=== PATIENT | female | born 1990 | race Caucasian/White ===

== ENCOUNTER 2018-04-01 16:07 | Emergency (ER) | payer OTHER ==
[2018-04-01] MEDS ORDERED: NORMAL SALINE 1000 ML 1,000 ML IV ONE (17:27)
[2018-04-01] MEDS ORDERED: METOCLOPRAMIDE HCL INJ/PF 10 MG/2 ML SDV IV ONE (17:28)
[2018-04-01] MEDS ORDERED: KETOROLAC TROMETHAMINE INJ/PF 30 MG/1 ML SDV IV ONE (17:29)
--- NOTE | 2018-04-01 17:43 | ER Document Report ---
ED Medical Screen (RME) - General Chief Complaint: migranes Stated Complaint: FEVER, MIGRAINE, FLU SYMPTOMS Time Seen by Provider: 04/01/18 17:13 Notes: Patient is a 27-year-old female, type 1 diabetes that presents to the emergency department for chief complaint of fever, neck stiffness, headache. ROS: Other than noted above, the 12 point review of systems was reviewed with the patient and were negative, all pertinent findings are included in the HPI. PHYSICAL EXAMINATION: Vital signs reviewed. GENERAL: Patient appears uncomfortable HEAD: Atraumatic, normocephalic. EYES: Pupils equal round extraocular movements intact, conjunctiva are normal. ENT: Nares patent NECK: Pain with flexion of the neck CV: Heart regular rate and rhythm LUNGS: No respiratory distress Musculoskeletal: Normal range of motion NEUROLOGICAL: Normal speech PSYCH: Flat affect MDM: Patient seen and examined for rapid initial assessment. Vital signs reviewed. A comprehensive ED assessment and evaluation of the patient, analysis of test results and completion of the medical decision making process will be conducted by additional ED providers. *Note is created using voice recognition software and may contain spelling, syntax or grammatical errors. TRAVEL OUTSIDE OF THE [place] IN LAST 30 DAYS: No - Related Data Allergies/Adverse Reactions: Sulfa (Sulfonamide Antibiotics) Allergy (Verified 04/01/18 16:10) Past Medical History - Social History Chew tobacco use (# tins/day): No Frequency of alcohol use: Rare Drug Abuse: None Endocrine Medical History: Reports: Hx Diabetes Mellitus Type 1 Renal/ Medical History: Denies: Hx Peritoneal Dialysis Past Surgical History: Reports: Hx Section, Hx Tonsillectomy - adnoids Physical Exam - Vital signs Vitals: Temp Pulse Resp BP Pulse Ox 100.4 F 89 16 140/76 H 97 04/01/18 16:13 04/01/18 16:13 04/01/18 16:13 04/01/18 16:13 04/01/18 16:13 Course - Vital Signs Vital signs: Temp Pulse Resp BP Pulse Ox 100.4 F 89 16 140/76 H 97 04/01/18 16:13 04/01/18 16:13 04/01/18 16:13 04/01/18 16:13 04/01/18 16:13 - Laboratory Laboratory results interpreted by me: 04/01/18 16:18 POC Glucose 152 H
[2018-04-01] MEDS ORDERED: DIPHENHYDRAMINE HCL 50 MG/ML VIAL IV ONE (18:01)
[2018-04-01 18:15] LABS: ABSOLUTE LYMPHOCYTES (AUTO) 0.6 10^3/uL (0.5-4.7); ABSOLUTE MONOCYTES (AUTO) 0.3 10^3/uL (0.1-1.4); BASOPHILS % (AUTO) 0.1 % (0-2); HEMATOCRIT 41.2 % (36.0-47.0); HEMOGLOBIN 14.1 g/dL (12.0-15.5); LYMPHOCYTES % (AUTO) 15.2 % (13-45); MEAN CORPUSCULAR HEMOGLOBIN 31.3 pg (27.0-33.4); MEAN CORPUSCULAR HGB CONC 34.3 g/dL (32.0-36.0); MEAN CORPUSCULAR VOLUME 92 fl (80-97); MONOCYTES % (AUTO) 7.6 % (3-13); PLATELET COUNT 151 10^3/uL (150-450); RED CELL DISTRIBUTION WIDTH 12.9 % (11.5-14.0); SEGMENTED NEUTROPHILS % (AUTO) 77.1 % (42-78); TOTAL CELLS COUNTED % (AUTO) 100 %
[2018-04-01 18:25] LABS: APPEARANCE,URINE CLEAR; BILIRUBIN,URINE NEGATIVE (NEGATIVE); COLOR,URINE YELLOW; GLUCOSE, URINE NEGATIVE (NEGATIVE); KETONES,URINE TRACE mg/dL (NEGATIVE); LEUKOCYTE ESTERASE,URINE NEGATIVE (NEGATIVE); NITRITE,URINE NEGATIVE (NEGATIVE); PROTEIN,URINE NEGATIVE (NEGATIVE); URINE SPECIFIC GRAVITY 1.008; UROBILINOGEN,URINE NEGATIVE mg/dL (<2.0)
[2018-04-01 18:34] LABS: ALANINE AMINOTRANSFERASE 39 U/L (9-52); ALBUMIN 4.7 g/dL (3.5-5.0); ALKALINE PHOSPHATASE 92 U/L (38-126); ANION GAP 12 (5-19); ASPARTATE AMINO TRANSFERASE 36 U/L (14-36); BILIRUBIN,DIRECT 0.1 mg/dL (0.0-0.4); BILIRUBIN,TOTAL 0.4 mg/dL (0.2-1.3); BLOOD UREA NITROGEN 14 mg/dL (7-20); CALCIUM 9.6 mg/dL (8.4-10.2); CARBON DIOXIDE 29 mmol/L (22-30); CHLORIDE 96 mmol/L (98-107); CREATINE KINASE 86 U/L (30-135); GLUCOSE 142 mg/dL (75-110); POTASSIUM 4.2 mmol/L (3.6-5.0); TOTAL PROTEIN 7.5 g/dL (6.3-8.2)
--- NOTE | 2018-04-01 19:09 | ER Document Report ---
ED General - General Chief Complaint: migranes Stated Complaint: FEVER, MIGRAINE, FLU SYMPTOMS Time Seen by Provider: 04/01/18 17:13 Notes: Patient is a 27-year-old female with a past medical history of type 1 diabetes who presents with 4 days of headache, neck pain and fever. Patient states that symptoms have been intermittent, have been relatively unchanged since onset. States that she came today as symptoms were not resolving she felt like her headache was actually worse today than normal. She does describe her headache as being a global throbbing, aching headache more dominant on the right versus the left. She states the ibuprofen moderately helps the pain. She states movement worsens the pain. Denies any history of similar symptoms in the past. She has not had cough, sore throat, vomiting, diarrhea, confusion, weakness or numbness. She has not seen her primary care physician regarding today's concerns. TRAVEL OUTSIDE OF THE [place] IN LAST 30 DAYS: No - Related Data Allergies/Adverse Reactions: Sulfa (Sulfonamide Antibiotics) Allergy (Verified 04/01/18 16:10) Past Medical History - General Information source: Patient - Social History Smoking Status: Never Smoker Chew tobacco use (# tins/day): No Frequency of alcohol use: Rare Drug Abuse: None Lives with: Spouse/Significant other Family History: Reviewed & Not Pertinent Patient has suicidal ideation: No Patient has homicidal ideation: No Endocrine Medical History: Reports: Hx Diabetes Mellitus Type 1 Renal/ Medical History: Denies: Hx Peritoneal Dialysis Past Surgical History: Reports: Hx Section, Hx Tonsillectomy - adnoids Review of Systems - Review of Systems Notes: Constitutional: Positive for fever. HENT: Negative for sore throat. Eyes: Negative for visual changes. Cardiovascular: Negative for chest pain. Respiratory: Negative for shortness of breath. Gastrointestinal: Negative for abdominal pain, vomiting or diarrhea. Genitourinary: Negative for dysuria. Musculoskeletal: Negative for back pain. Skin: Negative for rash. Neurological: Positive for headache 10 point ROS negative except as marked above and in HPI. Physical Exam - Vital signs Vitals: Temp Pulse Resp BP Pulse Ox 100.4 F 89 16 140/76 H 97 04/01/18 16:13 04/01/18 16:13 04/01/18 16:13 04/01/18 16:13 04/01/18 16:13 Interpretation: Normal Notes: PHYSICAL EXAMINATION: GENERAL: Appears moderately uncomfortable but in no acute distress HEAD: Atraumatic, normocephalic. EYES: Pupils equal round and reactive to light, extraocular movements intact, sclera anicteric, conjunctiva are normal. ENT: nares patent, oropharynx clear without exudates. Moderately dry mucous membranes. NECK: Normal range of motion, supple without lymphadenopathy, no meningismus LUNGS: Breath sounds clear to auscultation bilaterally and equal. No wheezes rales or rhonchi. HEART: Regular rate and rhythm without murmurs ABDOMEN: Soft, nontender, normoactive bowel sounds. No guarding, no rebound. No masses appreciated. EXTREMITIES: Normal range of motion, no pitting or edema. No cyanosis. NEUROLOGICAL: No focal neurological deficits. Moves all extremities spontaneously and on command. PSYCH: Normal mood, normal affect. SKIN: Warm, Dry, normal turgor, no rashes or lesions noted. Course - Re-evaluation Re-evalutation: 04/01/18 19:05 Patient presents with signs and symptoms most consistent with a viral meningitis. She does not have symptoms matching influenza, influenza testing is pending the patient does not wish to wait for results. She has no respiratory symptoms of any kind suggest pneumonia and she has declined a chest x-ray which I think is quite reasonable. Urinalysis is clear. No evidence of diabetic ketoacidosis on labs. Patient has no abdominal tenderness to suggest intra- abdominal pathology. No rashes or lesions. I had an extensive conversation with the patient and her [place] at the bedside. We did review that there is a possibility of bacterial meningitis although that this is quite unlikely given the duration of her symptoms, normal white blood cell count, absence of meningismus, and clinical history. I did advise that if the patient does have bacterial meningitis move her to miss this diagnosis, she could go home deterior ate and . We did review that there is a risk of lumbar puncture including bleeding, infection and most common a post lumbar puncture headache which could make her symptoms worse. After review and consideration of risks and benefits the patient and her have declined lumbar puncture stating that they would rather continue to monitor symptoms at home and return should they worsen. The patient has capacity, is able to fully verbalize risks and benefits of this decision, has no evidence of altered mental status that would impair her judgment. Her at the bedside has witnessed the entirety of the conversation and is in agreement. Patient has had improvement of her headache a fter receiving metoclopramide and Toradol. At this time will discharge with return precautions and follow-up recommendations. Verbal discharge instructions given a the bedside and opportunity for questions given. Medication warnings reviewed. Patient is in agreement with this plan and has verbalized understanding of return precautions and the need for primary care follow-up in the next 24 hours. - Vital Signs Vital signs: Temp Pulse Resp BP Pulse Ox 100.4 F 89 16 140/76 H 97 04/01/18 16:13 04/01/18 16:13 04/01/18 16:13 04/01/18 16:13 04/01/18 16:13 - Laboratory Result Diagrams: 04/01/18 17:44 04/01/18 17:44 Laboratory results interpreted by me: 04/01/18 04/01/18 04/01/18 16:18 17:42 17:44 Chloride 96 L Glucose 142 H POC Glucose 152 H Urine Ketones TRACE H Discharge - Discharge Clinical Impression: Neck stiffness Headache Qualifiers: Headache type: unspecified Headache chronicity pattern: acute headache Intractability: not intractable Qualified Code(s): R51 - Headache Fever Qualifiers: Fever type: unspecified Qualified Code(s): R50.9 - Fever, unspecified Condition: Good Disposition: HOME, SELF-CARE Additional Instructions: As we discussed, I suspect that you have viral meningitis. After our conversation today you have declined a lumbar puncture. For your pain: Take ibuprofen 600 mg and acetaminophen 1000 mg every 6 hours together as needed for pain. You may use the oral Reglan which has been prescribed as needed for headache not controlled by the above measures. I strongly encourage you to return to the emergency room immediately if you develop confusion, worsening of her headache, your symptoms fail to resolve, you develop weakness or numbness, or have any other symptoms that are worrisome to you. Prescriptions: Metoclopramide HCl [Reglan 10 mg Tablet] 1 - 2 tab PO ASDIR PRN #25 tablet PRN Reason:
[2018-04-01 19:36] LABS: A TYPE INFLUENZA AG NEGATIVE (NEGATIVE); B INFLUENZA AG NEGATIVE (NEGATIVE)
[2018-04-01 20:02] VITALS: BP 109/60
== END 2018-04-01 20:07 | disposition home or self-care (01) ==
LOC: ER 16:07
DX: M43.6 Torticollis (principal); E10.9 Type 1 diabetes mellitus without complications; Z88.2 Allergy status to sulfonamides
CPT/HCPCS: 99283; 96361; 96374; 96375; 36415; 82962; 82550; 85025; 81025; 80053; 81001; 87804; J1200; J1885; J2765; J7030